=== PATIENT | female | born 1950 | race Asian ===

== ENCOUNTER 2018-03-05 07:19 | Emergency (ER) | payer OTHER, MEDICARE ==
[2018-03-05 07:25] VITALS: BP 161/83; PULSE 81; TEMP 97.5; BMI 21.1
--- NOTE | 2018-03-05 07:44 | PDOC ---
History of Present Illness - General Chief Complaint: Pain, Acute Stated Complaint: MISSED STEP INJURY TO RIGHT FOOT Time Seen by Provider: 03/05/18 07:42 History Source: Patient Exam Limitations: No Limitations - History of Present Illness Initial Comments: 03/05/18 08:16 68 YOF with h/o HTN, HLD presenting with right foot and ankle pain, swelling and bruising since last night after missing step and rolling extremity. no head injury or LOC. no meds taken. able to ambulate, applying ice with some relief. Past History - Past Medical History Allergies/Adverse Reactions: Allergies Allergy/AdvReac Type Severity Reaction Status Date / Time No Known Allergies Allergy Verified 03/05/18 07:20 Home Medications: Ambulatory Orders Rosuvastatin Calcium [Crestor] 10 mg PO HS 03/05/18 COPD: No HTN: Yes (UNKNOWN MEDICATION) Hypercholesterolemia: Yes - Suicide/Smoking/Psychosocial Hx Smoking History: Never smoked Have you smoked in the past 12 months: No Information on smoking cessation initiated: No Hx Alcohol Use: No Drug/Substance Use Hx: No Substance Use Type: None Review of Systems - Review of Systems Able to Perform ROS?: Yes Comments:: 03/05/18 08:17 Constitutional: no weakness MUSCULOSKELETAL: +joint pain and swelling. No neck or back pain. BACK: no back or neck pain SKIN: no redness , no discharge, no rash. +bruising. Hematologic: no easy bruising/bleeding. NEUROLOGIC: No weakness, numbness or tingling. All other systems reviewed and negative, or as documented in HPI. 03/05/18 08:18 *Physical Exam - Vital Signs Last Vital Signs Temp Pulse Resp BP Pulse Ox 97.5 F L 81 16 161/83 99 03/05/18 07:21 03/05/18 07:21 03/05/18 07:21 03/05/18 07:21 03/05/18 07:21 - Physical Exam Comments: 03/05/18 08:19 General: NAD, well appearing Vascular: 2+ DP pulses symmetric and equal. Back: no midline tenderness, no stepoffs, FROM MSK: soft compartment. no calf tenderness. no prox fibular tenderness. +right dorsum foot and lateral malleolar ecchymosis, swelling and TTP. Neuro: 5/5 plantar and dorsiflexion strength. SILT. 2+ DP pulses bilaterally. Skin: color normal color, warm and well perfused. +ecchymosis to right foot/ ankle. ED Treatment Course - RADIOLOGY Radiology Studies Ordered: Category Date Time Status ANKLE & FOOT-RIGHT* [RAD] Stat Radiology 03/05/18 07:43 Ordered Medical Decision Making - Medical Decision Making 03/05/18 08:20 68 YOF with HTN, HLD presenting with right foot and ankle pain/injury s/p rolling foot when she missed step. no neuro changes able to ambulate with some difficulty. DDx ankle injury: Ankle/foot Sprain and contusion, extremity fracture, Bentley fx , Lisfranc fx. hematoma. Low suspicion for compartment syndrome, NVI and no neuro deficits. low suspicion for vascular abnormality or infection. vitals wnl. declines pain meds XR foot and ankle with preserved joint spaces, no cortical defects or e/o Bentley/ Lisfranc. foot and ankle contusion, treat with TRISTEN wrap and stirrup for comfort, WBAT, ortho followup. rest and ice, elevate, expectant management and improvement over the next 3-5 days. I discussed the physical exam findings, ancillary test results and final diagnoses with the patient. I answered all of the patient's questions. The patient was satisfied with the care received and felt comfortable with the discharge plan and treatment plan. The patient will return to the Emergency Department with any new, persistent or worsening symptoms. *DC/Admit/Observation/Transfer Diagnosis at time of Disposition: Contusion of right ankle, initial encounter, Contusion of right foot, initial encounter - Discharge Dispostion Disposition: HOME Condition at time of disposition: Stable Decision to Admit order: No - Referrals Referrals: Gabriel Lorenzo MD [Staff Physician] - - Patient Instructions Printed Discharge Instructions: DI for Ankle Sprain, DI for Foot Sprain Additional Instructions: you most likely have a foot and ankle contusion, with negative X ray for fracture or broken bones rest ice and elevate the extremity. may walk as tolerated, should start improving over the next 3-5 days, you may get more swelling and bruising as it heals. we have provided you an ankle brace to assist with the healing process and comfort. motrin or tylenol for pain as needed. follow up with orthopedist or your primary doctor, referral provided. information also provided in your [place] language. - Post Discharge Activity
== END 2018-03-05 09:20 | disposition home or self-care (01) ==
LOC: FER 07:19
PROC: 2W3QX1Z Immobilization of Right Lower Leg using Splint (ICD-10-PCS; principal; 2018-03-05)
DX: S90.31XA Contusion of right foot, initial encounter (principal); S90.01XA Contusion of right ankle, initial encounter; R05 Cough; X58.XXXA Exposure to other specified factors, initial encounter; Y93.89 Activity, other specified; Y92.9 Unspecified place or not applicable; I10 Essential (primary) hypertension; E78.5 Hyperlipidemia, unspecified
CPT/HCPCS: 73610-TC-RT-FY; 73630-TC-RT-FY; 99281-25